=== PATIENT | female | born 1960 | race Caucasian/White ===

== ENCOUNTER → 2019-05-02 15:55 | Outpatient (CLI) | payer BC, SELFPAY ==
--- NOTE | ~2019-05-02 | MM_ITS ---
EXAMINATION: MM screening [facility] BI w julito HISTORY: Screening mammogram TECHNIQUE: Craniocaudal and mediolateral oblique 3-D tomosynthesis images were obtained and synthetic 2-D images were generated. CAD analysis was submitted and interpreted. COMPARISON: 03/22/2018, 05/02/2015, 10/08/2013, 04/02/2013, 09/12/2012, 09/05/2012 BREAST PARENCHYMAL COMPOSITION: The breasts are heterogeneously dense, which may obscure small masses . FINDINGS: Again noted are stable masses in the upper outer quadrants of the breasts which have the ap pearance of intramammary lymph nodes. There is no evidence of suspicious mass, calcification, or arch itectural distortion to suggest malignancy in either breast. There has been no suspicious interval ch edmund. IMPRESSION: 1. No mammographic evidence of malignancy. 2. Recommend routine screening mammography in one year. BI-RADS Category 2: Benign finding(s). Reviewed, dictated and finalized at location A. [employer] [employer] [facility]
== END ==
PROVIDERS: Visit Provider Physician Assistant
DX: Z12.31 Encounter for screening mammogram for malignant neoplasm of breast (principal)
CPT/HCPCS: 77063; 77067

== ENCOUNTER → 2019-11-20 16:34 | Outpatient (CLI) | payer BC, SELFPAY ==
--- NOTE | ~2019-11-20 | XR_ITS ---
EXAMINATION: XR hand RT min 3V EXAM DATE: 11/20/2019 17:00 INDICATION: Trying to open container with right hand, slipped and hit it. Right hand injury, pain. In itial encounter. TECHNIQUE: Right hand frontal, lateral and oblique projections obtained and reviewed. There is no pr ior study for comparison. FINDINGS: There is acute closed posttraumatic oblique fracture through the right 5th metacarpal shaft with about 4 mm of displacement. No appreciable angulation. There is overlying soft tissue swelling. No other acute findings. IMPRESSION: Right 5th metacarpal shaft fracture, mild displacement. Reviewed, dictated and finalized at location A.
== END ==
PROVIDERS: PCP Physician Assistant; Visit Provider Physician Assistant Medical
DX: S62.356A Nondisplaced fracture of shaft of fifth metacarpal bone, right hand, initial encounter for closed fracture (principal); M79.641 Pain in right hand
CPT/HCPCS: 73130

== ENCOUNTER → 2019-12-18 13:25 | Outpatient (CLI) | payer BC, SELFPAY ==
--- NOTE | ~2019-12-18 | DEXA_ITS ---
Bone Density Report Name: Sulma Hill Age: 59 Sex: Female Ethnicity: White Date of : 1960 Indication: postmenopausal; screening for osteoporosis; inflammatory bowel disease; Referring Provider: Teto Rodriguez Study: Bone densitometry was performed. Exam Date: December 18, 2019 Accession number: [id number] Bone Density: Region BMD T-score Z-score Classification AP Spine (L1-L4) 0.835 -1.9 -0.5 Osteopenia Femoral Neck (Left) 0.683 -1.5 -0.2 Osteopenia Total Hip (Left) 0.859 -0.7 0.3 Normal World Health Organization criteria for BMD impression classify patients as: Normal (T-score at or above -1.0), Osteopenia (T-score between -1.0 and -2.5), or Osteoporosis (T-score at or below -2.5). 10-year Fracture Risk(1): Major Osteoporotic Fracture 8.0% Hip Fracture 0.7% Reported Risk Factors: [place] (), Neck BMD=0.683, BMI=27.1 (1) FRAX(R) Version 3.08. Fracture probability calculated for an untreated patient. Fracture probability may be lower if the patient has received treatment. Clinical Information Provided by Patient: Has used the following medications: Vitamin D, Calcium Has the following medical conditions: Inflammatory bowel diseases Patient maximum height was 67 Menopause Age: 54 Drinks caffeinated beverages Onset of menses at age 14 Number of children 2 Impression: The patient has low bone mass, based on the Total Spine T-score. The patient has an estimated ten-year risk of hip fracture of 0.7% and an estimated ten-year risk of major fracture of 8%, based on the WHO FRAX algorithm. Discussion: BONE DENSITY IS LOW AT ONE OR MORE SKELETAL SITES. This patient's lowest T-score is low at one or more skeletal sites. It meets the World Health Organization's (WHO) criteria for ?low bone mass? (T-score between -1.0 and -2.5). The patient's 10-year risk of fracture as calculated by FRAX is less than the threshold where pharmacological therapy is recommended by the National Osteoporosis Foundation (NOF). However, all treatment decisions require clinical judgment and consideration of individual patient factors, including patient preferences, comorbidities, previous drug use, risk factors not captured in the FRAX model (e.g., frailty, falls, vitamin D deficiency, increased bone turnover, interval significant decline in bone density) and possible under or overestimation of fracture risk by FRAX. The patient should follow a healthful lifestyle (good nutrition with adequate calcium and vitamin D, and appropriate weight-bearing exercise). Follow-Up: Consider repeating this study in 2 to 3 years to reassess this patient's status, or sooner if there is some new clinical indication. Reported by: JAMES on 12/18/2019 1:52:00 PM. Reviewed, dictated and finalized at location AAdan GARZA
== END ==
PROVIDERS: PCP Physician Assistant; Visit Provider Physician Assistant Medical
DX: Z78.0 Asymptomatic menopausal state (principal); M85.88 Other specified disorders of bone density and structure, other site; M85.852 Other specified disorders of bone density and structure, left thigh
CPT/HCPCS: 77080

== ENCOUNTER → 2020-07-21 14:50 | Outpatient (CLI) | payer BC, SELFPAY ==
--- NOTE | ~2020-07-21 | MM_ITS ---
EXAMINATION: MM screening [facility] BI w julito HISTORY: Screening mammogram TECHNIQUE: Craniocaudal and mediolateral oblique 3-D tomosynthesis images were obtained and synthetic 2-D images were generated. CAD analysis was submitted and interpreted. COMPARISON: 05/02/2019, 04/01/2018, 05/02/2015 BREAST PARENCHYMAL COMPOSITION: There are scattered areas of fibroglandular density. FINDINGS: There is no evidence of suspicious mass, calcification, or architectural distortion to sugg est malignancy in either breast. There has been no suspicious interval change. IMPRESSION: 1. No mammographic evidence of malignancy. 2. Recommend routine screening mammography in one year. BI-RADS Category 1: Negative Reviewed, dictated and finalized at location A.
== END ==
PROVIDERS: Visit Provider Physician Assistant
DX: Z12.31 Encounter for screening mammogram for malignant neoplasm of breast (principal)
CPT/HCPCS: 77063; 77067

== ENCOUNTER 2020-09-09 01:58 | Day surgery (SDC) | payer BC, SELFPAY ==
[2020-08-20 14:05] VITALS: BMI 25.1
[2020-09-09 06:58] VITALS: BP 130/82; PULSE 65; RESP 20; TEMP 36.1; O2SAT 100; BMI 25.7
[2020-09-09] MEDS: LACTATED RINGERS 1,000 ML 150 ML IV CONT (07:17)
--- NOTE | 2020-09-09 07:55 | PM.HPGS ---
History of Present Illness History of Present Illness Consent: Risks, benefits, and alternatives have been discussed and questions answered. Patient agrees to proceed with procedure. Chief complaint: neoplasm screening and dysphagia Narrative: Sulma Hill is a 60 year old female here for screening colonoscopy and egd. She has celiac disease diagnosed about 9 years ago now on gluten free diet, also had 4-5 colonoscopies last one 2011 with only hemorrhoids. Also choking after drinking. Review of Systems Constitutional: Constitutional: Denies headache(s) and Denies weakness Eyes: Eyes: Denies blurry vision ENT: Reports Normal hearing present, Denies headache(s) and Denies neck pain Cardiovascular: Cardiovascular: Denies chest pain and Denies dyspnea Respiratory: Respiratory: Denies dyspnea Gastrointestinal: Gastrointestinal: Reports no additional gastrointestinal complaints Genitourinary: Genitourinary: Denies dysuria Musculoskeletal: Musculoskeletal: Denies neck pain Integumentary/Breasts: Skin/Breast: Denies dry skin Neurologic: Reports Normal hearing present, Denies headache(s) and Denies weakness Psychiatric: Psychiatric: Denies anxiety Endocrine: Endocrine: Denies change in body appearance Hematologic/Lymphatic: Hematologic/Lymphatic: Denies easy bleeding Allergic/Immunologic: Allergic/Immunologic: Denies urticaria PMFSH Past Medical History Medical History (Updated 09/09/20 @ 07:46 by Bronson Steven MD) Anemia Colon cancer screening Dysphagia H/O bronchitis Family History Family History Grandparent Carcinoma of colon, Onset Age: 90 Family history of coronary artery disease, Onset Age: 50 Father Family history of coronary artery disease Mother Family history of type 2 diabetes mellitus Other No family history of cardiovascular disease Social History Social History Smoking status: Never smoker Second hand tobacco smoke exposure: No Alcohol intake: current Alcohol use details: socially Substance use: current Substance use type: marijuana Living arrangements: with family Spiritual care concerns: No Meds Home Medications and Allergies Home Medications Medication Instructions Recorded Confirmed Type doxylamine succinate 25 mg tablet 25 mg PO ONCE 03/23/19 09/09/20 History folic acid 1 mg tablet 1 mg PO DAILY 03/23/19 09/09/20 History hydroxychloroquine 200 mg tablet 200 mg PO DAILY 03/23/19 09/09/20 History methotrexate sodium 2.5 mg tablet 2.5 mg PO WEEKLY 03/23/19 08/20/20 History naproxen sodium 220 mg tablet 220 mg PO BID PRN 03/23/19 08/20/20 History pilocarpine HCl 5 mg tablet 5 mg PO TID 03/23/19 09/09/20 History bupropion HCl 150 mg 24 hr tablet, See Rx Instructions .ROUTE 12/21/19 09/09/20 Rx extended release .COMPLEX #90 tablet triamcinolone acetonide 0.025 % 1 applic TOPICAL BID PRN #15 g 04/02/20 08/20/20 Rx topical cream Allergies Allergy/AdvReac Type Severity Reaction Status Date / Time No Known Allergies Allergy Verified 09/09/20 06:57 Vital Signs Vital Signs - 24 hr 09/09/20 06:58 Temperature 97.0 F L Pulse Rate 65 Respiratory Rate 20 Blood Pressure 130/82 Pulse Oximetry 100 Exam Const: General: comfortable and no acute distress HENMT: General nose exam: Normal nares present Eyes: General: appearance normal, both eyes and all related structures Neck: Neck: no JVD Resp: Auscultation: clear to auscultation bilaterally Cardio: Rate: regular rate Rhythm: regular rhythm GI: Inspection: non-distended GI Palp: Yes Soft to palpation Skin: General skin exam: normal color Neuro: General: gait normal Speech: normal speech Extrem: General: normal to inspection Psych: Mental Status: mental status grossly normal Assessment and Plan Assessment and plan (1) Celiac diseas
--- NOTE | 2020-09-09 08:21 | SUR.OPER ---
EGD START 756, END 802 COLONOSCOPY START 808, END 820
[2020-09-09 08:25] VITALS: BP 96/59; PULSE 64; RESP 22; O2SAT 100
[2020-09-09 08:35] VITALS: BP 115/81; PULSE 58; RESP 13; O2SAT 100
== END 2020-09-09 08:59 | disposition home or self-care (01) ==
PROVIDERS: PCP Family Medicine; Visit Provider Internal Medicine Gastroenterology
PROC: 0DJ08ZZ Inspection of Upper Intestinal Tract, Via Natural or Artificial Opening Endoscopic (ICD-10-PCS; CPT 43235; principal; 2020-09-09 08:00)
DX: Z12.11 Encounter for screening for malignant neoplasm of colon (principal); K64.8 Other hemorrhoids; R13.11 Dysphagia, oral phase; K29.50 Unspecified chronic gastritis without bleeding; K20.80 Other esophagitis without bleeding; K29.80 Duodenitis without bleeding; K90.0 Celiac disease; D64.9 Anemia, unspecified; F12.90 Cannabis use, unspecified, uncomplicated
CPT/HCPCS: 45378; 43239; 88305; J2704; J7120